=== PATIENT | male | born 1970 | race Hispanic/Latino ===

== ENCOUNTER 2017-01-12 00:26 | Emergency (ER) | payer OTHER ==
[2017-01-12 02:10] LABS: Basophils % (Auto) 0.8 % (0.0-1.8); Eosinophils % (Auto) 4.1 % (0.0-4.3); Hematocrit 41.3 % (35.5-45.6); Mean Corpuscular HGB Conc 34 % (32-34); Mean Corpuscular Hemoglobin 32 pg (28-32); Mean Corpuscular Volume 93 fl (84-94); Platelet Count 235 K/mm3 (140-440); Red Blood Count 4.43 M/mm3 (3.65-5.03); Red Cell Distribution Width 12.9 % (13.2-15.2); White Blood Count 8.8 K/mm3 (4.5-11.0)
[2017-01-12 02:17] LABS: Alanine Aminotransferase 9 units/L (7-56); Albumin 4.1 g/dL (3.9-5); Albumin/Globulin Ratio 1.5 %; Alkaline Phosphatase 58 units/L (35-129); Anion Gap 15 mmol/L; BUN/Creatinine Ratio 15; Blood Urea Nitrogen 16 mg/dL (9-20); Calcium 8.6 mg/dL (8.4-10.2); Carbon Dioxide 30 mmol/L (22-30); Chloride 97.9 mmol/L (98-107); Glucose 104 mg/dL (75-100); Potassium 3.5 mmol/L (3.6-5.0); Sodium 139 mmol/L (137-145); Total Protein 6.8 g/dL (6.3-8.2)
[2017-01-12] MEDS ORDERED: NORCO 5/325 PO ONE (08:05)
--- NOTE | 2017-01-12 08:10 | Emergency Department Report ---
HPI - General Chief Complaint: Extremity Injury, Lower Time Seen by Provider: 01/12/17 07:58 - HPI HPI: Room 9 The patient is a 46-year-old male presenting with a chief complaint of leg pain. The patient states that over the past 2 days he developed worsening left lower extremity pain and swelling. Patient states the pain and swelling has worsened to the point where it is difficult for him to stand. Patient denies any recent trauma. Patient denies loss of consciousness Location: Left lower extremity Duration: 2 days Quality: Pain Severity:10/03 Modifying factors: Weightbearing increases pain Context: [see above] Mode of transportation: Unknown ED Past Medical Hx - Past Medical History Previous Medical History?: Yes Hx Asthma: Yes Additional medical history: left lung crystalization - Surgical History Past Surgical History?: Yes Additional Surgical History: tonsillectomy - Family History Family history: no significant - Social History Smoking Status: Current Every Day Smoker Substance Use Type: None, Cocaine, Methamphetamines (denies IVDA) - Medications Home Medications: Home Medications Medication Instructions Recorded Confirmed Last Taken Type Clindamycin [Clindamycin CAP] 300 mg PO Q6H #7 day 07/04/15 Unknown Rx Ibuprofen Oral Liqd [Motrin] 200 mg PO TID PRN #1 bottle 07/04/15 Unknown Rx Cyclobenzaprine [Flexeril] 10 mg PO TID PRN #20 tablet 01/12/17 Unknown Rx HYDROcodone/APAP 5-325 [[place] 1 - 2 each PO Q6HR PRN #20 tablet 01/12/17 Unknown Rx 5/325] Ibuprofen [Motrin] 800 mg PO Q8HR PRN #30 tablet 01/12/17 Unknown Rx ED Review of Systems ROS: Stated complaint: LEFT CALF PAIN Other details as noted in HPI Comment: All other systems reviewed and negative Constitutional: denies: chills, fever Eyes: denies: eye pain, eye discharge, vision change ENT: denies: ear pain, throat pain Respiratory: denies: cough, shortness of breath, wheezing Cardiovascular: denies: chest pain, palpitations Endocrine: no symptoms reported Gastrointestinal: denies: abdominal pain, nausea, diarrhea Genitourinary: denies: urgency, dysuria Musculoskeletal: myalgia Skin: denies: rash, lesions Neurological: other (dizziness). denies: headache, weakness, paresthesias Psychiatric: denies: anxiety, depression Hematological/Lymphatic: denies: easy bleeding, easy bruising Physical Exam - Physical Exam Vital Signs: Vital Signs 01/12/17 01/12/17 01/12/17 00:51 04:57 07:06 Temperature 98.0 F 97.3 F L 98.6 F Pulse Rate 92 H 78 80 Respiratory 18 18 16 Rate Blood Pressure 136/89 132/96 Blood Pressure 136/82 [Left] O2 Sat by Pulse 97 98 100 Oximetry Physical Exam: GENERAL: The patient is well-developed well-nourished male lying on stretcher appearing to be in mild discomfort. [] HEENT: Normocephalic. Atraumatic. Extraocular motions are intact. Patient has moist mucous membranes. NECK: Supple. Trachea midline CHEST/LUNGS: Clear to auscultation. There is no respiratory distress noted. HEART/CARDIOVASCULAR: Regular. There is no tachycardia. There is no gallop rub or murmur. 2+ left DP ABDOMEN: Abdomen is soft, nontender. Patient has normal bowel sounds. There is no abdominal distention. SKIN: There is increased warmth and swelling of the left calf. There is no diaphoresis. NEURO: The patient is awake, alert, and oriented. The patient is cooperative. The patient has normal speech MUSCULOSKELETAL: There is tenderness to palpation of the left calf ED Course Vital Signs 01/12/17 01/12/17 01/12/17 00:51 04:57 07:06 Temperature 98.0 F 97.3 F L 98.6 F Pulse Rate 92 H 78 80 Respiratory 18 18 16 Rate Blood Pressure 136/89 132/96 Blood Pressure 136/82 [Left] O2 Sat by Pulse 97 98 100 Oximetry - Consultations Consultation #1: 01/12/17 11:41 Orthopedic surgery paged 01/12/17 12:[address] French-recommends knee immobilizer, crutches and weight- bear as tolerated. Recommends giving prescription for pain medication and have patient follow-up in the office ED Medical Decision Making - Lab Data Result diagrams: 01/12/17 01:19 01/12/17 01:19 Laboratory Tests 01/12/17 01/12/17 01:19 01:19 WBC 8.8 RBC 4.43 Hgb 14.0 Hct 41.3 MCV 93 MCH 32 MCHC 34 RDW 12.9 L Plt Count 235 Lymph % (Auto) 20.9 Desha % (Auto) 8.3 H Eos % (Auto) 4.1 Baso % (Auto) 0.8 Lymph # 1.8 Desha # 0.7 Eos # 0.4 Baso # 0.1 Seg Neutrophils % 65.9 Seg Neutrophils # 5.8 Sodium 139 Potassium 3.5 L Chloride 97.9 L Carbon Dioxide 30 Anion Gap 15 BUN 16 Creatinine 1.1 Estimated GFR > 60 BUN/Creatinine Ratio 15 Glucose 104 H Calcium 8.6 Total Bilirubin 0.30 AST 14 ALT 9 Alkaline Phosphatase 58 Total Protein 6.8 Albumin 4.1 Albumin/Globulin Ratio 1.5 - Radiology Data Radiology results: report reviewed (left lower extremity Doppler), image reviewed (left lower extremity Doppler) TIFFANIE CARBONE Male : 1970 [facility]# [id number] 01/12/17 10:54 - Radiology Dept. Note by IZABELA BOURNE [facility] Num: [id number] : 1970 Patient Age: 46 LLE VENOUS DUPLEX COMPLETED. VAS LAB PRELIMINARY REPORT; NO EVIDENCE OF DVT/SVT NOTED IN VESSELS/SEGMENTS EXAMINED. LG SOFT TISSUE CHANGE NOTED IN LT. PX CALF ( HARRY'S CYST?). PHYSICIANS REPORT TO FOLLOW... (RSK) Initialized on 01/12/17 10:54 - END OF NOTE - Differential Diagnosis DVT, cellulitis, Critical care attestation.: If time is entered above; I have spent that time in minutes in the direct care of this critically ill patient, excluding procedure time. ED Disposition Clinical Impression: Left leg pain, Bakers cyst Disposition: - TO HOME OR SELFCARE Is pt being admited?: No Does the pt Need Aspirin: No Condition: Stable Instructions: Arthralgia (ED), Harry's Cyst (ED) Additional Instructions: Return to the emergency department immediately should you develop worsening symptoms, fever, inability to tolerate food or liquid or any other concerns. Prescriptions: Cyclobenzaprine [Flexeril] 10 mg PO TID PRN #20 tablet PRN Reason: Muscle Spasm HYDROcodone/APAP 5-325 [[place] 5/325] 1 - 2 each PO Q6HR PRN #20 tablet PRN Reason: Pain Ibuprofen [Motrin] 800 mg PO Q8HR PRN #30 tablet PRN Reason: Pain Referrals: MORRIS FRENCH MD [Staff Physician] - [place]PT[place] (Dr. French is an orthopedic surgeon. Please follow-up with him for further evaluation) Time of Disposition: 12:18
[2017-01-12 12:55] VITALS: BP 135/81
--- NOTE | 2017-01-14 11:45 | Vascular Lab Report ---
Left Lower Extremity Venous Duplex Study: Reason for Exam: Pain and swelling of the left lower extremity. Comments on the Right: A limited duplex study was done of the proximal veins of the right lower extremity. All veins visualized are freely compressible without evidence of internal echogenicity. Flow is spontaneous and phasic throughout. No evidence of acute or chronic thrombus is seen in any of the vessels visualized. Comments on the Left: All veins visualized are freely compressible without evidence of internal echogenicity. Flow is spontaneous and phasic throughout. No evidence of acute or chronic thrombus is seen in any of the vessels visualized. Soft tissue changes are consistent with a Harry's cyst Impression: No evidence of acute or chronic deep venous thrombosis in the left lower extremity.
== END 2017-01-12 12:55 | disposition home or self-care (01) ==
LOC: ED 00:26
DX: M79.605 Pain in left leg (principal); M71.22 Synovial cyst of popliteal space [Baker], left knee; J45.909 Unspecified asthma, uncomplicated; F17.200 Nicotine dependence, unspecified, uncomplicated; F15.10 Other stimulant abuse, uncomplicated
CPT/HCPCS: 36415; 80053; 85025

== ENCOUNTER 2017-07-09 00:33 | Emergency (ER) | payer SELFPAY ==
[2017-07-09 05:58] LABS: Bilirubin,Urine NEG (Negative); Blood,Urine LG (Negative); Color,Urine Yellow (Yellow)
[2017-07-09 05:59] LABS: RBC,Urine > 182.0 /HPF (0.0-6.0); WBC,Urine > 182.0 /HPF (0.0-6.0)
[2017-07-09] MEDS ORDERED: ZOFRAN ODT PO ONE (07:02)
[2017-07-09] MEDS ORDERED: ZITHROMAX PO ONE (07:02)
--- NOTE | 2017-07-09 07:07 | Emergency Department Report ---
ED Male HPI - General Chief complaint: Urogenital-Male Stated complaint: PAINFUL URINATION; PAIN IN GROIN Time Seen by Provider: 07/09/17 06:15 Source: patient Mode of arrival: Ambulatory Limitations: No Limitations - History of Present Illness Initial comments: Patient is a 47-year-old male who is presenting with 3 days of pain with urination. Patient states that there is also at times a yellow discharge. There is also some odor to the urine as well. Patient is sexually active but states his partner has no symptoms and he states that he does not have any worries or concerns about STDs. Patient reports nausea and pain in the right groin. Patient states pain in the right groin is a 10 out of 10 there is a small nodule underneath the skin. Patient denies any fevers chills chest pain shortness of breath or cough at this time. - Related Data Previous Rx's Medication Instructions Recorded Last Taken Type Clindamycin [Clindamycin CAP] 300 mg PO Q6H #7 day 07/04/15 Unknown Rx Ibuprofen Oral Liqd [Motrin] 200 mg PO TID PRN #1 bottle 07/04/15 Unknown Rx Cyclobenzaprine [Flexeril] 10 mg PO TID PRN #20 tablet 01/12/17 Unknown Rx HYDROcodone/APAP 5-325 [[place] 1 - 2 each PO Q6HR PRN #20 tablet 01/12/17 Unknown Rx 5/325] Ibuprofen [Motrin] 800 mg PO Q8HR PRN #30 tablet 01/12/17 Unknown Rx Ciprofloxacin HCl [Cipro] 500 mg PO BID #14 tablet 07/09/17 Unknown Rx HYDROcodone/APAP 5-325 [[place] 1 each PO Q4HR PRN #12 tablet 07/09/17 Unknown Rx 5/325] Ibuprofen [Motrin] 800 mg PO Q8HR PRN #20 tablet 07/09/17 Unknown Rx Allergies Allergy/AdvReac Type Severity Reaction Status Date / Time Penicillins Allergy Unknown Verified 02/25/14 07:23 ED Review of Systems ROS: Stated complaint: PAINFUL URINATION; PAIN IN GROIN Other details as noted in HPI Comment: All other systems reviewed and negative ED Past Medical Hx - Past Medical History Previous Medical History?: Yes Hx Congestive Heart Failure: No Hx Diabetes: No Hx Asthma: Yes Hx COPD: No Hx HIV: No Additional medical history: left lung crystalization - Surgical History Past Surgical History?: No Additional Surgical History: tonsillectomy - Social History Smoking Status: Current Every Day Smoker Substance Use Type: None - Medications Home Medications: Home Medications Medication Instructions Recorded Confirmed Last Taken Type Clindamycin [Clindamycin CAP] 300 mg PO Q6H #7 day 07/04/15 Unknown Rx Ibuprofen Oral Liqd [Motrin] 200 mg PO TID PRN #1 bottle 07/04/15 Unknown Rx Cyclobenzaprine [Flexeril] 10 mg PO TID PRN #20 tablet 01/12/17 Unknown Rx HYDROcodone/APAP 5-325 [[place] 1 - 2 each PO Q6HR PRN #20 tablet 01/12/17 Unknown Rx 5/325] Ibuprofen [Motrin] 800 mg PO Q8HR PRN #30 tablet 01/12/17 Unknown Rx Ciprofloxacin HCl [Cipro] 500 mg PO BID #14 tablet 07/09/17 Unknown Rx HYDROcodone/APAP 5-325 [[place] 1 each PO Q4HR PRN #12 tablet 07/09/17 Unknown Rx 5/325] Ibuprofen [Motrin] 800 mg PO Q8HR PRN #20 tablet 07/09/17 Unknown Rx ED Physical Exam - General Limitations: No Limitations General appearance: alert, in no apparent distress - Head Head exam: Present: atraumatic, normocephalic - Eye Eye exam: Present: normal appearance - ENT ENT exam: Present: mucous membranes moist - Neck Neck exam: Present: normal inspection - Respiratory Respiratory exam: Present: normal lung sounds bilaterally. Absent: respiratory distress, wheezes, rales, rhonchi - Cardiovascular Cardiovascular Exam: Present: regular rate, normal rhythm. Absent: systolic murmur, diastolic murmur, rubs, gallop - GI/Abdominal GI/Abdominal exam: Present: soft, normal bowel sounds. Absent: distended, tenderness, guarding - Rectal Rectal exam: Present: deferred - exam: Present: urethral discharge External exam: Present: other (patient has tenderness in the right inguinal area with some small lymphadenopathy) - Extremities Exam Extremities exam: Present: normal inspection - Back Exam Back exam: Present: normal inspection - Neurological Exam Neurological exam: Present: alert, oriented X3 - Psychiatric Psychiatric exam: Present: normal affect, normal mood - Skin Skin exam: Present: warm, dry, intact, normal color. Absent: rash ED Course Vital Signs 07/09/17 07/09/17 02:27 05:08 Temperature 98.3 F 97.8 F Pulse Rate 72 69 Respiratory 18 16 Rate Blood Pressure 125/75 Blood Pressure 134/87 [Left] O2 Sat by Pulse 98 96 Oximetry ED Medical Decision Making - Lab Data Lab Results 07/09/17 Range/Units 05:33 Urine Color Yellow (Yellow) Urine Turbidity Clear (Clear) Urine pH 5.0 (5.0-7.0) Ur Specific [place] 1.026 (1.003-1.030) Urine Protein 100 mg/dl (Negative) mg/dL Urine Glucose (UA) Neg (Negative) mg/dL Urine Ketones Tr (Negative) mg/dL Urine Blood Lg (Negative) Urine Nitrite Neg (Negative) Urine Bilirubin Neg (Negative) Urine Urobilinogen 2.0 (<2.0) mg/dL Ur Leukocyte Esterase Lg (Negative) Urine WBC (Auto) > 182.0 H (0.0-6.0) /HPF Urine RBC (Auto) > 182.0 (0.0-6.0) /HPF U Epithel Cells (Auto) 1.0 (0-13.0) /HPF - Medical Decision Making Culture for GC chlamydia has been ordered. Patient's urinalysis shows a great amount of white blood cells and RBCs in the urine. The patient will be treated for acute cystitis as well as urethritis. Patient be discharged home. Critical care attestation.: If time is entered above; I have spent that time in minutes in the direct care of this critically ill patient, excluding procedure time. ED Disposition Clinical Impression: Urethritis Acute cystitis Qualifiers: Hematuria presence: with hematuria Qualified Code(s): N30.01 - Acute cystitis with hematuria Disposition: -01 TO HOME OR SELFCARE Is pt being admited?: No Does the pt Need Aspirin: No Condition: Stable Referrals: VALDEZ PADILLA MD [Staff Physician] - 3-5 Days Forms: STI Treatment and Prevention
[2017-07-09 08:38] VITALS: BP 138/88
== END 2017-07-09 07:43 | disposition home or self-care (01) ==
LOC: ED 00:33
DX: N34.2 Other urethritis (principal); N30.00 Acute cystitis without hematuria; J45.909 Unspecified asthma, uncomplicated; F17.200 Nicotine dependence, unspecified, uncomplicated; Z88.0 Allergy status to penicillin
CPT/HCPCS: 81001; 87591; 99283; Q0162